=== PATIENT | male | born 1990 | race Two or more races ===

== ENCOUNTER 2018-12-21 12:07 | Inpatient (IN) | payer OTHER ==
[2018-12-21 13:14] VITALS: BMI 31.3
--- NOTE | 2018-12-21 15:02 | HP ---
CIWA Score Nausea/Vomitin Muscle Tremors: 3 Anxiety: 3 Agitation: 3 Paroxysmal Sweats: 1-Minimal Palms Moist Orientation: 0-Oriented Tacttile Disturbances: 1-Very Mild Itch/Numbness Auditory Disturbances: 0-None Visual Disturbances: 0-None Headache: 2-Mild CIWA-Ar Total Score: 15 - Admission Criteria OASAS Guidelines: Admission for Medically Managed Detox: Requires at least one of the followin. CIWA greater than 12 2. Seizures within the past 24 hours 3. Delirium tremens within the past 24 hours 4. Hallucinations within the past 24 hours 5. Acute intervention needed for co occurring medical disorder 6. Acute intervention needed for co occurring psychiatric disorder 7. Severe withdrawal that cannot be handled at a lower level of care (continued vomiting, continued diarrhea, abnormal vital signs) requiring intravenous medication and/or fluids 8. Admission ROS S - HPI Chief Complaint: i need help to stop xanax,alcohol,heroin abued,crackmarijuana Allergies/Adverse Reactions: Allergies Allergy/AdvReac Type Severity Reaction Status Date / Time No Known Allergies Allergy Verified 12/21/18 13:06 History of Present Illness: this 28 years old male with alcohol,xanax,cocaine,marijuana and heroin abused, seeking help,seen in er last night, get IV and medication for nausea no seizure syncope history of hypertension anxiety and depression last treatment [facility] for 1 day ,not completed Exam Limitations: No Limitations - Ebola screening Have you traveled outside of the country in the last 21 days: No Have you had contact with anyone from an Ebola affected area: No - Review of Systems Constitutional: Chills, Loss of Appetite, Malaise, Night Sweats, Changes in sleep, Weakness EENT: reports: Tearing, Nose Congestion Respiratory: reports: No Symptoms reported Cardiac: reports: No Symptoms Reported GI: reports: Nausea, Poor Appetite, Abdominal cramping : reports: No Symptoms Reported Musculoskeletal: reports: Back Pain, Joint Pain, Muscle Pain Integumentary: reports: Dryness Neuro: reports: Headache, Tremors Endocrine: reports: No Symptoms Reported Hematology: reports: No Symptoms Reported Psychiatric: reports: No Sypmtoms Reported, Judgement Intact, Mood/Affect Appropiate, Orientated x3 Other Systems: Reviewed and Negative Patient History - Patient Medical History Hx Anemia: No Hx Asthma: No Hx Chronic Obstructive Pulmonary Disease (COPD): No Hx Cancer: No Hx Cardiac Disorders: No Hx Congestive Heart Failure: No Hx Hypertension: No Hx Hypercholesterolemia: No Hx Pacemaker: No HX Cerebrovascular Accident: No Hx Seizures: No Hx Dementia: No Hx Diabetes: No Hx Gastrointestinal Disorders: No Hx Liver Disease: No Hx Genitourinary Disorders: No Hx Sexually Transmitted Disorders: No Hx Renal Disease (ESRD): No Hx Thyroid Disease: No Hx Human Immunodeficiency Virus (HIV): No (last 2019 negavtive) Hx Hepatitis C: No Hx Depression: Yes (no medication) Hx Suicide Attempt: No Hx Bipolar Disorder: No Hx Schizophrenia: No Other Medical History: anxiety,insomnia,depression,no suicidal,no homicidal - Patient Surgical History Past Surgical History: No - PPD History Previous Implant?: Yes Documented Results: Negative w/o proof Implanted On Prior [facility] Admission?: No PPD to be Administered?: No - Smoking Cessation Smoking history: Current every day smoker Have you smoked in the past 12 months: Yes Aproximately how many cigarettes per day: 20 Cigars Per Day: 0 Hx Chewing Tobacco Use: No Initiated information on smoking cessation: Yes 'Breaking Loose' booklet given: 12/21/18 - Substance & Tx. History Hx Alcohol Use: Yes Hx Substance Use: Yes Substance Use Type: Alcohol, Marijuana, Opiates, Tranquilizers Hx Substance Use Treatment: Yes ([facility] last week for only one day) - Substances abused Heroin Substance route: Injection Frequency: 3-6 times per week Amount used: 3 Age of first use: 26 Date of last use: 12/20/18 Alcohol Substance route: Oral Frequency: Daily Amount used: 1pint of brie/6 packs of 12 ozs of beer Age of first use: 22 Date of last use: 12/20/18 Alprazolam (Xanax) Substance route: Oral Frequency: Daily Amount used: 10 mgs Age of first use: 21 Date of last use: 12/20/18 Crack Substance route: Smoking Frequency: Daily Amount used: 20$ Age of first use: 26 Date of last use: 12/20/18 Marijuana/Hashish Substance route: Smoking Frequency: Daily Amount used: 10$ Age of first use: 23 Date of last use: 12/20/18 Family Disease History - Family Disease History Family History: Denies Admission Physical Exam [facility] - Vital Signs Vital Signs: Vital Signs - 24 hr 12/21/18 13:06 Temperature 97.5 F L Pulse Rate 90 Respiratory 18 Rate Blood Pressure 138/72 - Physical General Appearance: Yes: Moderate Distress, Tremorous, Irritable, Sweating, Anxious HEENTM: Yes: Normocephalic, JHO[place], Pharynx Normal Respiratory: Yes: Within Normal Limits, Lungs Clear, Normal Breath Sounds Neck: Yes: Within Normal Limits, Supple, Trachea in good position Breast: Yes: Within Normal Limits Cardiology: Yes: Within Normal Limits, Regular Rhythm, Regular Rate, S1, S2 Abdominal: Yes: Within Normal Limits, Normal Bowel Sounds, Non Tender, Flat, Soft Genitourinary: Yes: Within Normal Limits Back: Yes: Muscle Spasm Musculoskeletal: Yes: Muscle Pain Extremities: Yes: Tremors Neurological: Yes: Motor Strength 5/5 Integumentary: Yes: Dry, Track Arellano Lymphatic: Yes: Within Normal Limits - Diagnostic (1) Alcohol dependence with uncomplicated withdrawal Current Visit: Yes Status: Acute (2) Sedative, hypnotic or anxiolytic dependence with withdrawal, uncomplicated Current Visit: Yes Status: Acute (3) Heroin abuse Current Visit: Yes Status: Acute (4) Cocaine abuse Current Visit: Yes Status: Acute (5) Cannabis abuse Current Visit: Yes Status: Acute (6) Nicotine dependence Current Visit: Yes Status: Acute (7) Syncope Current Visit: Yes Status: Acute (8) Insomnia secondary to depression with anxiety Current Visit: Yes Status: Acute Cleared for Admission [facility] - Detox or Rehab [facility] Level of Care: Medically Managed Detox Regimen/Protocol: Valium Inpatient Rehab Admission - Rehab Decision to Admit Inpatient rehab admission?: No
[2018-12-21] MEDS ORDERED: hydrOXYzine PAMOATE 25 MG CAPSULE (FP) PO PRN (15:16)
[2018-12-21] MEDS ORDERED: diazePAM 5 MG TABLET PO PRN (15:16)
[2018-12-21] MEDS ORDERED: IBUPROFEN 400 MG TABLET (FP) PO PRN (15:16)
[2018-12-21] MEDS ORDERED: BISMUTH SUBSALICYLATE 524 MG/30 ML UD PO PRN (15:16)
[2018-12-21] MEDS ORDERED: MELATONIN 5 MG TABLETS PO PRN (15:16)
[2018-12-21] MEDS ORDERED: MENTHOL/PHENOL 1 EACH UD MM PRN (15:16)
[2018-12-21] MEDS ORDERED: MAGNESIUM CITRATE 300 ML BOTTLE PO PRN (15:16)
[2018-12-21] MEDS ORDERED: MAGNESIUM HYDROX 2400MG/30ML ORAL SUSPENSION 30 ML CUP PO PRN (15:16)
[2018-12-21] MEDS ORDERED: ACETAMINOPHEN 325 MG TABLET (FP) PO PRN ×2 (15:16)
[2018-12-21] MEDS ORDERED: MAG HYDROX/AL HYDROX/SIMETH 30 ML UNIT-DOSE CUP PO PRN (15:16)
[2018-12-21] MEDS ORDERED: cloNIDine HCL 0.1 MG TABLET PO PRN (15:24)
[2018-12-21] MEDS ORDERED: NICOTINE 21 MG/24 HOURS TOPICAL PATCH TD SCH (17:15)
[2018-12-21 17:22] LABS: HEMATOCRIT 41.9 % (35.4-49); HEMOGLOBIN 14.1 GM/dL (11.7-16.9); MCH 29.8 pg (25.7-33.7); MCHC 33.7 g/dl (32.0-35.9); MEAN CELL VOLUME 88.6 fl (80-96); MEAN PLT VOLUME 8.2 fl (7.5-11.1); PLATELET COUNT 242 K/MM3 (134-434); RBC 4.73 M/mm3 (4.00-5.60); RDW 13.6 % (11.9-15.9); WHITE BLOOD COUNT 5.2 K/mm3 (4.0-10.0)
[2018-12-21] MEDS: METHOCARBAMOL 500 MG TABLET PO PRN ×2 (17:30→23:32)
[2018-12-21 17:49] LABS: ALBUMIN 3.8 g/dl (3.4-5.0); BILIRUBIN,TOTAL 0.4 mg/dL (0.2-1); BLOOD UREA NITROGEN 25.8 mg/dL (7-18); CALCIUM 9.1 mg/dL (8.5-10.1); POTASSIUM 4.4 mmol/L (3.5-5.1); TOT PROT 7.7 g/dl (6.4-8.2)
[2018-12-21] MEDS ORDERED: THIAMINE HCL 100 MG TABLET (FP) PO SCH (22:00)
[2018-12-21] MEDS: diazePAM 5 MG TABLET PO SCH (22:33)
[2018-12-22] MEDS: METHOCARBAMOL 500 MG TABLET PO PRN (05:29)
[2018-12-22] MEDS: diazePAM 5 MG TABLET PO SCH (05:29)
[2018-12-22 06:52] VITALS: BP 120/66; PULSE 68; TEMP 97.2
--- NOTE | 2018-12-22 08:54 | DS ---
[facility] Detox Discharge Summary Admission Date: 12/21/18 Patient was just admitted yesterday but now feels well and wants to be discharged due to a family emergency. His cousin is in the hospital and he wants to go see him. Despite this commercial underwriter's concern for him and that he will experience more withdrawals, he is still going to leave despite medical advice. Discharge Date: 12/22/18 (family emergency) - History Present History: Alcohol Dependence, Cannabis Dependence, Cocaine Dependence, Opioid Dependence Pertinent Past History: 28 year old male with multi substance use disorder admitted yesterday due to withdrawals from alcohol and opiates. - Physical Exam Results Vital Signs: Vital Signs Temperature 97.2 F L 12/22/18 06:00 Pulse Rate 68 12/22/18 06:00 Respiratory Rate 18 12/22/18 06:00 Blood Pressure 120/66 12/22/18 06:00 O2 Sat by Pulse Oximetry (%) Pertinent Admission Physical Exam Findings: Laboratory 12/21/18 12/21/18 14:20 14:20 WBC 5.2 K/mm3 K/mm3 (4.0-10.0) RBC 4.73 M/mm3 M/mm3 (4.00-5.60) Hgb 14.1 GM/dL GM/dL (11.7-16.9) Hct 41.9 % % (35.4-49) MCV 88.6 fl fl (80-96) MCH 29.8 pg pg (25.7-33.7) MCHC 33.7 g/dl g/dl (32.0-35.9) RDW 13.6 % % (11.9-15.9) Plt Count 242 K/MM3 K/MM3 (134-434) MPV 8.2 fl fl (7.5-11.1) Sodium 139 mmol/L mmol/L (136-145) Potassium 4.4 mmol/L mmol/L (3.5-5.1) Chloride 105 mmol/L mmol/L (98-107) Carbon Dioxide 28 mmol/L mmol/L (21-32) Anion Gap 6 MMOL/L L MMOL/L (8-16) BUN 25.8 mg/dL H mg/dL (7-18) Creatinine 1.0 mg/dL mg/dL (0.55-1.3) Est GFR (CKD-EPI)AfAm 119.02 Est GFR (CKD-EPI)NonAf 102.69 Random Glucose 77 mg/dL mg/dL (74-106) Calcium 9.1 mg/dL mg/dL (8.5-10.1) Total Bilirubin 0.4 mg/dL mg/dL (0.2-1) AST 23 U/L U/L (15-37) ALT 25 U/L U/L (13-61) Alkaline Phosphatase 76 U/L U/L (45-117) Total Protein 7.7 g/dl g/dl (6.4-8.2) Albumin 3.8 g/dl g/dl (3.4-5.0) P/E: Anxious male alert and oriented x 3 Cor: s1,s2 normal heart sounds Lungs: Clear to Auscultation Abd: Benign, + BS, NT Ext: FROM , Normal range of motion, no deficits. - Treatment Patient has Accepted a Rehab Referral to: He is leaving against medical advice - Medication Discharge Medications: Ambulatory Orders NK [No Known Home Medication] 12/21/18 - Diagnosis (1) Alcohol dependence with uncomplicated withdrawal Current Visit: Yes Status: Acute (2) Cannabis abuse Current Visit: Yes Status: Acute (3) Cocaine abuse Current Visit: Yes Status: Acute (4) Heroin abuse Current Visit: Yes Status: Acute (5) Nicotine dependence Current Visit: Yes Status: Acute (6) Sedative, hypnotic or anxiolytic dependence with withdrawal, uncomplicated Current Visit: Yes Status: Acute - AMA Did Patient Leave Against Medical Advice: Yes (He has a family emergency )
[2018-12-22] MEDS ORDERED: PRENATAL VITAMINS W/ FOLIC ACID TABLET (FP) PO SCH (10:00)
--- NOTE | 2018-12-22 11:29 | EKG ---
Test Reason : Blood Pressure : / mmHG Vent. Rate : 074 BPM Atrial Rate : 074 BPM P-R Int : 132 ms QRS Dur : 108 ms QT Int : 390 ms P-R-T Axes : 041 052 046 degrees QTc Int : 432 ms NORMAL SINUS RHYTHM WITH SINUS ARRHYTHMIA INCOMPLETE RIGHT BUNDLE BRANCH BLOCK NO PREVIOUS ECGS AVAILABLE Confirmed by MOHINDER ORR MD ([id number]) on 12/22/2018 11:29:24 AM Referred By: Confirmed By:MOHINDER ORR MD
[2018-12-23] MEDS ORDERED: diazePAM 5 MG TABLET PO SCH (06:00)
[2018-12-24] MEDS ORDERED: diazePAM 5 MG TABLET PO ONE (06:00)
== END 2018-12-22 09:26 | disposition left against medical advice (07) | DRG 770 ==
LOC: YASAS 12:07 → Y6N 16:12
PROVIDERS: ADMIT Surgery; ATTEND Surgery
PROC: HZ2ZZZZ Detoxification Services for Substance Abuse Treatment (ICD-10-PCS; principal; 2018-12-21)
DX: F10.230 Alcohol dependence with withdrawal, uncomplicated (principal); F11.20 Opioid dependence, uncomplicated; F13.230 Sedative, hypnotic or anxiolytic dependence with withdrawal, uncomplicated; F14.10 Cocaine abuse, uncomplicated; F12.10 Cannabis abuse, uncomplicated; F17.210 Nicotine dependence, cigarettes, uncomplicated; F51.05 Insomnia due to other mental disorder
CPT/HCPCS: 36415; 80053; 85027; 86480; 86593; 87389; 93005; 93010; J0735